=== PATIENT | female | born 1985 | race Hispanic/Latino ===

== ENCOUNTER 2016-10-07 22:13 | Observation (INO) | payer OTHER ==
[~2016-10-07] VITALS: Ht 165.1 cm; Wt 64.9 kg
--- NOTE | 2016-10-07 22:17 | NUR ---
30 YEAR OLD FEMALE C/O CRAMPING PAIN IN ABDOMEN. REPORTS SYMPTOMS STARTED AT 1600 AND PT VOMITED ONCE. REPORTS SHE WAS DIAGNOSED WITH FLU LAST WEEK AND WAS JUST STARTING TO FEEL BETTER WHEN SYMPTOMS STARTED TODAY. DENIES MEDICAL HISTORY OR DAILY MEDICATIONS, NKA.
--- NOTE | 2016-10-07 22:18 | NUR ---
DR. MOSS TO BEDSIDE FOR EVAL.
--- NOTE | 2016-10-07 22:30 | ED GI/GU/ABDOMINAL COMPLAINT ---
History of Present Illness General Chief Complaint: Nausea, Vomiting, Diarrhea Stated Complaint: CRAMPING IN MY STOMACH Source: patient, family Exam Limitations: no limitations Vital Signs & Intake/Output Vital Signs & Intake/Output Vital Signs Date Time Temp Pulse Resp B/P Pulse O2 O2 Flow FiO2 Ox Delivery Rate 10/07 2214 99.0 99 20 118/81 97 Room Air Room Air ED Intake and Output 10/08 0000 10/07 1200 Intake Total 1000 Output Total Balance 1000 Intake, IV 1000 Patient 143 lb Weight Triage Note: 30 YEAR OLD FEMALE C/O CRAMPING PAIN IN ABDOMEN. REPORTS SYMPTOMS STARTED AT 1600 AND PT VOMITED ONCE. REPORTS SHE WAS DIAGNOSED WITH FLU LAST WEEK AND WAS JUST STARTING TO FEEL BETTER WHEN SYMPTOMS STARTED TODAY. DENIES MEDICAL HISTORY OR DAILY MEDICATIONS, NKA. Triage Nurses Notes Reviewed? yes ? N Is pt currently ? No HPI: Patient has been experiencing influenza symptoms for the past 5 days. Subjective fevers chills. Positive myalgias. Nonproductive cough. Patient states that she is beginning to feel better however earlier today she developed diffuse crampy abdominal pain as well as nausea and vomiting. Patient denies any diarrhea. There is no radiation of the crampy pain. There are no aggravating or mitigating factors. She rates the crampy pain is 8 out of 10. She has not noticed any blood in her vomitus. Patient denies dysuria. Past History Travel History Traveled to [place] past 21 day No Medical History Any Pertinent Medical History? none Surgical History Surgical History: non-contributory Psychosocial History What is your primary language Palauan Tobacco Use: Never used ETOH Use: occasional use Illicit Drug Use: denies illicit drug use Family History Hx Contributory? No Review of Systems Review of Systems Constitutional: Reports: no symptoms. EENTM: Reports: no symptoms. Respiratory: Reports: no symptoms. Cardiovascular: Reports: no symptoms. GI: Reports: see HPI, abdominal pain, nausea, vomiting. Genitourinary: Reports: no symptoms. Musculoskeletal: Reports: no symptoms. Skin: Reports: no symptoms. Neurological/Psychological: Reports: no symptoms. Hematologic/Endocrine: Reports: no symptoms. Immunologic/Allergic: Reports: no symptoms. All Other Systems: Reviewed and Negative Physical Exam Physical Exam General Appearance: well developed/nourished, alert, awake, moderate distress Head: atraumatic, normal appearance Eyes: Bilateral: PERRL, EOMI. Ears, Nose, Throat, Mouth: hearing grossly normal, DRY MUCOUS MEMBRANES Neck: normal inspection, supple, full range of motion Respiratory: normal breath sounds, chest non-tender, no respiratory distress, lungs clear Cardiovascular: regular rate/rhythm, normal peripheral pulses Gastrointestinal: normal bowel sounds, DIFFUSELY TENDER WITH VOLUNTARY GUARDING, NO REBOUND, NORMAL BOWEL SOUNDS Back: normal inspection, normal range of motion Extremities: normal range of motion Neurologic/Psych: no motor/sensory deficits, awake, alert, oriented x 3, normal mood/affect Skin: intact, normal color, warm/dry Core Measures ACS in differential dx? No Severe Sepsis Present: No Septic Shock Present: No Progress Differential Diagnosis: appendicitis, bowel obstruction, cholecystitis, diverticulitis, ectopic , gastritis, hepatitis, ischemic bowel, inflamm bowel dis, intrauterine , pancreatitis, SBO, threatened AB, UTI/pyelo Plan of Care: Orders Procedure Date/time Status LIPASE 10/07 2229 Complete HUMAN BETA HCG SCREEN 10/07 2229 Complete COMPREHENSIVE METABOLIC PANEL 10/07 2229 Complete CBC WITHOUT DIFFERENTIAL 10/07 2229 Complete AMYLASE 10/07 2229 Complete Current Medications Sig/[place] Start time Last Medication Dose Stop Time Status Admin Ampicillin Sodium/ 3,000 MG ONCE ONE 10/08 0045 UNVr Sulbactam Sodium 10/08 0114 (Unasyn) Sodium Chloride 100 ML (Normal Saline 0.9%) Laboratory Tests 10/07/16 2301: Anion Gap 13, Estimated GFR > 60, BUN/Creatinine Ratio 13.3, Glucose 108 H, Calcium 9.5, Total Bilirubin 0.5, AST 18, ALT 30, Alkaline Phosphatase 58, Total Protein 7.1, Albumin 4.4, Globulin 2.7, Albumin/Globulin Ratio 1.6, Amylase 40, Lipase 83, Total Beta HCG NEGATIVE, CBC w Diff NO MAN DIFF REQ, RBC 5.01, MCV 86.2, MCH 28.8, RDW 12.6, MPV 8.4, Gran % 85.9 H, Lymphocytes % 8.4 L, Monocytes % 5.2, Eosinophils % 0.5, Basophils % 0 L, Absolute Granulocytes 15.4 H, Absolute Lymphocytes 1.5, Absolute Monocytes 0.9 H, Absolute Eosinophils 0.1, Absolute Basophils 0, PUBS MCHC 33.4 Diagnostic Imaging: Viewed by Me: CT Scan. Discussed w/RAD: CT Scan. Radiology Impression: PATIENT: LAUREEN LUDWIG PRESENT AGE: 30 PATIENT ACCOUNT NO: [id number] : 83 LOCATION: [facility] ORDERING PHYSICIAN: ISADORA MOSS MD SERVICE DATE: 10/07/16 EXAM TYPE: CAT - CT ABD & PELVIS W IV CONTRAST EXAMINATION: CT ABDOMEN AND PELVIS WITH CONTRAST CLINICAL INFORMATION: Right lower quadrant pain. COMPARISON: None. TECHNIQUE: Contiguous axial thin section helical images of the abdomen and pelvis were performed following the administration of 93 mL of intravenous Optiray 320. The data set was reformatted in the coronal and sagittal planes and reviewed on an independent workstation. DLP: 247 mGy-cm. FINDINGS: The visualized lung bases are clear. The visualized portions of the heart are unremarkable. The liver is of normal size and attenuation without concerning focal lesions nor intrahepatic biliary ductal dilation. Within the dome of the right lobe of the liver on image 103/664, there is an approximately 4 mm low-attenuation focus which is too small to fully characterize, but could correspond to a cyst. A normal gallbladder is identified. There is no wall thickening or discernible pericholecystic fluid. The spleen, pancreas, adrenal glands are unremarkable. Both kidneys are of normal size and attenuation without hydronephrosis or nephrolithiasis. Following the administration of IV contrast, prompt symmetric nephrograms are displayed. There is no abdominal free fluid. There is neither mesenteric nor retroperitoneal lymphadenopathy. The appendix is identified in the right lower quadrant with fluid within the distal portion of the lumen. This measures approximately 7 mm. There is equivocal enhancement about the distal wall of the appendix. About the tip of the appendix, there is mild fat stranding. Otherwise, unremarkable unopacified loops of small and large bowel are identified. An IUD is in appropriate position. There is no pelvic free fluid. The urinary bladder is unremarkable. There is neither pelvic nor inguinal lymphadenopathy. Bone windows: Neither sclerotic nor lytic bone lesions are identified. IMPRESSION: Wall thickening and enhancement about the tip of the appendix with trace adjacent mesenteric fat stranding suggestive of early tip appendicitis. DICTATED BY: IVA LIRA MD DATE/TIME DICTATED:10/08/169 VETERINARY NURSE: BAILEY DATE/TIME TRANSCRIBED:10/08/169 CONFIDENTIAL, DO NOT COPY WITHOUT APPROPRIATE AUTHORIZATION. <Electronically signed in Other Vendor System> SIGNED BY: IVA LIRA MD 10/08/16 0022 Initial ED EKG: none Comments: On reexamination the pain localizes to the right lower quadrant. We will obtain a CAT scan. Departure Departure Disposition: STILL A PATIENT Condition: Guarded Clinical Impression Primary Impression: Appendicitis Departure Forms: Customer Survey General Discharge Information Observation Note Spoke With: SHERRIE HARDY,MARIALUISA Ortiz Physician Advisor Notified: ISA HARDY,ISADORA [address] Patient In: Non-ED OBS Care Area Rationale for Observation: My rational for observation is as follows [IV fluids, IV antibiotics, surgical evaluation.].
[2016-10-07 23:10] LABS: ABSOLUTE BASOPHIL COUNT 0 /CUMM (0.0-0.2); ABSOLUTE EOSINOPHIL COUNT 0.1 /CUMM (0.0-0.7); ABSOLUTE GRANULOCYTE CT 15.4 /CUMM (1.4-6.5); ABSOLUTE LYMPH COUNT 1.5 /CUMM (1.2-3.4); ABSOLUTE MONOCYTE COUNT 0.9 /CUMM (0.10-0.60); BASOPHIL % 0 % (0.0-2.0); EOSINOPHIL % 0.5 % (0-5); HEMATOCRIT 43.2 % (37-47); MEAN CORPUSCULAR HGB 28.8 PG (27.0-31.0); MEAN CORPUSCULAR HGB CONC 33.4 G/DL (33.0-37.0); MEAN CORPUSCULAR VOLUME 86.2 FL (81.0-99.0); MEAN PLATELET VOLUME 8.4 FL (7.4-10.4); PLATELET COUNT 221 /CUMM (130-400); RBC DISTRIBUTION WIDTH 12.6 % (11.5-14.5); RED BLOOD CELL CT 5.01 /CUMM (4.20-5.40); WHITE BLOOD CELL COUNT 17.9 /CUMM (4.8-10.8)
[2016-10-07 23:14] LABS: GRANULOCYTE % 85.9 % (42.2-75.2)
--- NOTE | 2016-10-07 23:15 | NUR ---
PATIENT LAYING ON STRETCHER W/ EYES CLOSED AT THIS TIME.
--- NOTE | 2016-10-07 23:55 | NUR ---
PATIENT TO CT BY STRETCHER.
--- NOTE | 2016-10-08 00:07 | NUR ---
PATIENT RETURNED FROM CT SCAN BY STRETCHER. SECOND LITER NS INFUSING AT PRESENT PER EMAR. TOLERATING WELL.
--- NOTE | 2016-10-08 00:11 | NUR ---
PATIENT MEDICATED W/ MORPHINE 2MG PER EMAR. TOLERATED WELL.
--- NOTE | 2016-10-08 00:22 | CT SCAN REPORT ---
EXAMINATION: CT ABDOMEN AND PELVIS WITH CONTRAST CLINICAL INFORMATION: Right lower quadrant pain. COMPARISON: None. TECHNIQUE: Contiguous axial thin section helical images of the abdomen and pelvis were performed following the administration of 93 mL of intravenous Optiray 320. The data set was reformatted in the coronal and sagittal planes and reviewed on an independent workstation. DLP: 247 mGy-cm. FINDINGS: The visualized lung bases are clear. The visualized portions of the heart are unremarkable. The liver is of normal size and attenuation without concerning focal lesions nor intrahepatic biliary ductal dilation. Within the dome of the right lobe of the liver on image 103/664, there is an approximately 4 mm low-attenuation focus which is too small to fully characterize, but could correspond to a cyst. A normal gallbladder is identified. There is no wall thickening or discernible pericholecystic fluid. The spleen, pancreas, adrenal glands are unremarkable. Both kidneys are of normal size and attenuation without hydronephrosis or nephrolithiasis. Following the administration of IV contrast, prompt symmetric nephrograms are displayed. There is no abdominal free fluid. There is neither mesenteric nor retroperitoneal lymphadenopathy. The appendix is identified in the right lower quadrant with fluid within the distal portion of the lumen. This measures approximately 7 mm. There is equivocal enhancement about the distal wall of the appendix. About the tip of the appendix, there is mild fat stranding. Otherwise, unremarkable unopacified loops of small and large bowel are identified. An IUD is in appropriate position. There is no pelvic free fluid. The urinary bladder is unremarkable. There is neither pelvic nor inguinal lymphadenopathy. Bone windows: Neither sclerotic nor lytic bone lesions are identified. IMPRESSION: Wall thickening and enhancement about the tip of the appendix with trace adjacent mesenteric fat stranding suggestive of early tip appendicitis.
--- NOTE | 2016-10-08 00:58 | NUR ---
SURGICAL PA PITER AT BEDSIDE FOR EVAL. UNASYN 3G INFUSING AT 200ML/HR PER EMAR. TOLERATING WELL.
--- NOTE | 2016-10-08 01:21 | History & Physical ---
General Information and HPI Source of Information: patient Exam Limitations: no limitations History of Present Illness: Patient is a 30yo F that presented to [place] with 1 day history of abdominal discomfort and right lower quadrant abdominal pain. Patient states that she recently had flu last week but those symptoms resolved over the past weekend. She had started to increase her by mouth intake then started developing increased abdominal discomfort Thursday which then progressed to abdominal pain the following day. At this time pain is located in RLQ. She continues to have n/v with PO intake. Passing flatus. No further complaints of. No chest pain or shortness of breath. Past History Travel History Traveled to [place] past 21 day No Surgical History Surgical History: non-contributory Past Family/Social History Psychosocial History ETOH Use: occasional use Illicit Drug Use: denies illicit drug use Review of Systems Review of Systems Constitutional: Reports: chills, fever. EENTM: Reports: no symptoms. Cardiovascular: Denies: chest pain, palpitations. Respiratory: Denies: short of breath. GI: Reports: see HPI. Genitourinary: Denies: dysuria. Musculoskeletal: Reports: no symptoms. Skin: Denies: change in skin color, jaundice, lesions. Exam & Diagnostic Data Last 24 Hrs of Vital Signs/I&O Vital Signs Date Time Temp Pulse Resp B/P Pulse O2 O2 Flow FiO2 Ox Delivery Rate 10/07 2214 99.0 99 20 118/81 97 Room Air Room Air Intake & Output 10/08 0800 10/08 0000 10/07 1600 Intake Total 2000 1000 Output Total Balance 2000 1000 Intake, IV 2000 1000 Patient 143 lb Weight Physical Exam General Appearance Alert, Oriented X3, Cooperative, No Acute Distress Skin No Rashes, No Breakdown, No Significant Lesion HEENT Atraumatic, EOMI, Mucous Membr. moist/pink Neck Supple Cardiovascular Regular Rate Lungs Normal Air Movement Abdomen Soft, Non distended. +McBurney point tenderness. No guarding. No rebound tenderness or Rosving's sign. Neurological Strength at 5/5 X4 Ext, Cranial Nerves 3-12 NL Extremities Normal Pulses Last 24 Hrs of Labs/Georges: Laboratory Tests 10/07/16 2301: Anion Gap 13, Estimated GFR > 60, BUN/Creatinine Ratio 13.3, Glucose 108 H, Calcium 9.5, Total Bilirubin 0.5, AST 18, ALT 30, Alkaline Phosphatase 58, Total Protein 7.1, Albumin 4.4, Globulin 2.7, Albumin/Globulin Ratio 1.6, Amylase 40, Lipase 83, Total Beta HCG NEGATIVE, CBC w Diff NO MAN DIFF REQ, RBC 5.01, MCV 86.2, MCH 28.8, RDW 12.6, MPV 8.4, Gran % 85.9 H, Lymphocytes % 8.4 L, Monocytes % 5.2, Eosinophils % 0.5, Basophils % 0 L, Absolute Granulocytes 15.4 H, Absolute Lymphocytes 1.5, Absolute Monocytes 0.9 H, Absolute Eosinophils 0.1, Absolute Basophils 0, PUBS MCHC 33.4 Diagnostic Data Other Results EXAM TYPE: CAT - CT ABD & PELVIS W IV CONTRAST EXAMINATION: CT ABDOMEN AND PELVIS WITH CONTRAST CLINICAL INFORMATION: Right lower quadrant pain. COMPARISON: None. TECHNIQUE: Contiguous axial thin section helical images of the abdomen and pelvis were performed following the administration of 93 mL of intravenous Optiray 320. The data set was reformatted in the coronal and sagittal planes and reviewed on an independent workstation. DLP: 247 mGy-cm. FINDINGS: The visualized lung bases are clear. The visualized portions of the heart are unremarkable. The liver is of normal size and attenuation without concerning focal lesions nor intrahepatic biliary ductal dilation. Within the dome of the right lobe of the liver on image 103/664, there is an approximately 4 mm low-attenuation focus which is too small to fully characterize, but could correspond to a cyst. A normal gallbladder is identified. There is no wall thickening or discernible pericholecystic fluid. The spleen, pancreas, adrenal glands are unremarkable. Both kidneys are of normal size and attenuation without hydronephrosis or nephrolithiasis. Following the administration of IV contrast, prompt symmetric nephrograms are displayed. There is no abdominal free fluid. There is neither mesenteric nor retroperitoneal lymphadenopathy. The appendix is identified in the right lower quadrant with fluid within the distal portion of the lumen. This measures approximately 7 mm. There is equivocal enhancement about the distal wall of the appendix. About the tip of the appendix, there is mild fat stranding. Otherwise, unremarkable unopacified loops of small and large bowel are identified. An IUD is in appropriate position. There is no pelvic free fluid. The urinary bladder is unremarkable. There is neither pelvic nor inguinal lymphadenopathy. Bone windows: Neither sclerotic nor lytic bone lesions are identified. IMPRESSION: Wall thickening and enhancement about the tip of the appendix with trace adjacent mesenteric fat stranding suggestive of early tip appendicitis. Assessment/Plan Assessment: 30yo F with acute appendicitis - Admit to observation under Dr. Gutierrez - NPO - IVF with K+ - IV unasyn - Pain control - SC heparin and ALPS for DVT PPx - I/O's - OR with Dr. Gutierrez for laparoscopic vs open cholecystectomy - Will d/w Dr. Gutierrez As Ranked By This Provider Problem List: 1. Appendicitis Core Measures/Miscellaneous Acute Coronary Syndrome ACS Diagnosis: No Cerebrovascular Accident CVA/TIA Diagnosis: No Congestive Heart Failure CHF Diagnosis: No Venous Thromboembolism VTE Risk Factors: Acute medical illness VTE Prophylaxis Ordered Inpt: Mech & Pharm No Mech VTE prophylaxis d/t: No contraindications No VTE Pharm Prophylaxis d/t: No contraindications VTE Diagnosis: No VTE Type: NONE VTE Confirmed by (Test): NONE Severe Sepsis Severe Sepsis Present: No Septic Shock Septic Shock Present: No Miscellaneous Documentation Attending Case Discussed With: Dr. Gutierrez Primary Care Physician: PATIENT HAS NO PRIMARY CARE Patient sees these Specialists Unknown Level of Patient Care: General Medicine
--- NOTE | 2016-10-08 02:23 | NUR ---
REPORT CALLED TO MARK SHELTON ON GM.
--- NOTE | 2016-10-08 02:32 | NUR ---
KCL 20MEQ IN D5-1/2NS INFUSING AT 100ML/HR PER EMAR. TOLERATING WELL. PATIENT REPORTS INCREASING PAIN, MORPHINE ORDER Q3H, CAN BE GIVEN AGAIN AT 0311. ZOFRAN PRN ORDER PLACED FOR Q8H.
[2016-10-08] MEDS ORDERED: ZOFRAN ODT4 M1 SL (02:36)
--- NOTE | 2016-10-08 02:38 | NUR ---
PATIENT REPORTS HAD +FLU SWAB LAST THURSDAY AND TOOK TAMIFLU. MARK SHELTON ON FLOOR AWARE.
--- NOTE | 2016-10-08 02:46 | NUR ---
ROOM CHANGED TO 222 (PRIVATE ROOM) D/T CONCERN OF PATIEN T HAVING DX FLU LAST THURSDAY DESPITE TAMIFLU.
[2016-10-08 03:01] VITALS: BP 108/62
--- NOTE | 2016-10-08 04:36 | NUR ---
REPORT RECEIVED FROM ANGELICA RN, PT ARRIVED TO FLOOR AT 0258 VIA STRETCHER. A&OX3, ON RA, LUNGS CLEAR, VITALS STABLE. PT C/O NAUSEA DENIES VOMITTING, PAIN 5/10, PT STATES SHE HAD THE FLU LAST WEEK, TOOK TAMIFLU BUT COULD NOT KEEP IT DOWN DUE TO VOMITTING. PT + COUGH, DENIES SORE THROAT. FLU SWAB ORDERED. PT REMAINS NPO FOR OR TOMORROW. IV FLUIDS RUNNING, ORIENTED TO ROOM, STAFF, CALL MARQUEZ WITHIN REACH. WILL CONTINUE TO MONIOR.
[2016-10-08 06:23] VITALS: BP 122/66
--- NOTE | 2016-10-08 08:55 | History & Physical Pre-Op ---
General Information and HPI Source of Information: patient Exam Limitations: no limitations History of Present Illness: CC: abdominal pain HPI: 30-year-old nondiabetic nonsmoker otherwise healthy no medications no prior surgeries female who had the flu last week associated with vomiting back up better over the weekend and then Thursday she started having abdominal cramps all day generalized the continued into earlier yesterday but then started having persistent pain in the right lower quadrant she came to the ER the vomiting stopped no fevers no sweats pain not worse on movement no dysuria no bleeding per rectum no back pain, pain does not seem to be related to food her brother had appendicitis when he was 3 years old, otherwise no changes bowel habits, weight or appetite. I've reviewed the [facility]. No history of GERD, PUD, bleeding problems, heart disease or issues with anesthesia. 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 History of MRSA: No History of VRE: No History of CDIFF: No Isolation History: Standard Surgical History Pertinent Surgical History: non-contributory Past Family/Social History Psychosocial History Smoking Status: Never Smoked ETOH Use: occasional use Illicit Drug Use: denies illicit drug use Review of Systems Review of Systems: Constitutional: No fever, sweats or weight loss ENMT: No sore throat Cardiovascular: No chest pain, palpitations or leg swelling Respiratory: No shortness of breath, cough, or sputum or dyspnea on exertion GI: No GERD or bleeding per rectum : No dysuria or hematuria Musculoskeletal: No new muscle weakness, bone or joint pain Skin / Breast: No jaundice, rashes or itching Psychiatric: No history of drug or alcohol abuse no depression or anxiety Hematologic / lymphatic system: No problems with excessive bleeding, bruising, or blood clots Exam & Diagnostic Data Last 24 Hrs of Vital Signs/I&O I reviewed Vital Signs Date Time Temp Pulse Resp B/P Pulse O2 O2 Flow FiO2 Ox Delivery Rate 10/08 0623 97.9 84 18 122/66 98 Room Air 10/08 0301 98.2 80 18 108/62 98 Room Air 10/08 0222 97.4 72 18 104/64 96 Room Air 10/07 2214 99.0 99 20 118/81 97 Room Air Room Air I reviewed Intake & Output 10/08 1600 10/08 0800 10/08 0000 Intake Total 2400 1000 Output Total 350 Balance 2050 1000 Intake, IV 2400 1000 Intake, Oral 0 Number 0 Bowel Movements Output, Urine 350 Patient 143 lb 143 lb Weight Physical Exam: Constitutional: pleasant, no acute distress, conversant Eyes: sclera anicteric ENMT: ears and nose atraumatic, moist mucous membranes, good dentition, no lip lesions Neck: Supple, trachea is midline, no cervical or supraclavicular adenopathy and no palpable thyromegaly Cardiovascular: S1, S2, no murmurs, no peripheral edema Respiratory: clear to auscultation with normal respiratory effort and no intercostal retractions GI: abdomen soft, right lower quadrant abdominal tenderness but lower than McBurney's point, very focal, nondistended, no palpable hepatosplenomegaly Extremities / lymphatics: symmetrically warm, free range of motion no peripheral edema, no cervical, supraclavicular, axillary, or inguinal adenopathy Musculoskeletal: He did not evaluate gait and station, no digital cyanosis, good muscle strength and tone no atrophy, motor grossly 5 out of 5 throughout Skin: no jaundice, no rashes warm, nondiaphoretic, no areas of erythema or induration Psychiatric: mood and affect are appropriate and alert and oriented to person place and time Last 24 Hrs of Labs/Georges: I reviewed Laboratory Tests 10/07/16 2301: Anion Gap 13, Estimated GFR > 60, BUN/Creatinine Ratio 13.3, Glucose 108 H, Calcium 9.5, Total Bilirubin 0.5, AST 18, ALT 30, Alkaline Phosphatase 58, Total Protein 7.1, Albumin 4.4, Globulin 2.7, Albumin/Globulin Ratio 1.6, Amylase 40, Lipase 83, Total Beta HCG NEGATIVE, CBC w Diff NO MAN DIFF REQ, RBC 5.01, MCV 86.2, MCH 28.8, RDW 12.6, MPV 8.4, Gran % 85.9 H, Lymphocytes % 8.4 L, Monocytes % 5.2, Eosinophils % 0.5, Basophils % 0 L, Absolute Granulocytes 15.4 H, Absolute Lymphocytes 1.5, Absolute Monocytes 0.9 H, Absolute Eosinophils 0.1, Absolute Basophils 0, PUBS MCHC 33.[address] scan on PACS myself from last night shows a prominent appendix without surrounding inflammatory changes it's a little lower than McBurney's point Diagnostic Data Other Results EXAM TYPE: CAT - CT ABD & PELVIS W IV CONTRAST EXAMINATION: CT ABDOMEN AND PELVIS WITH CONTRAST CLINICAL INFORMATION: Right lower quadrant pain. COMPARISON: None. TECHNIQUE: Contiguous axial thin section helical images of the abdomen and pelvis were performed following the administration of 93 mL of intravenous Optiray 320. The data set was reformatted in the coronal and sagittal planes and reviewed on an independent workstation. DLP: 247 mGy-cm. FINDINGS: The visualized lung bases are clear. The visualized portions of the heart are unremarkable. The liver is of normal size and attenuation without concerning focal lesions nor intrahepatic biliary ductal dilation. Within the dome of the right lobe of the liver on image 103/664, there is an approximately 4 mm low-attenuation focus which is too small to fully characterize, but could correspond to a cyst. A normal gallbladder is identified. There is no wall thickening or discernible pericholecystic fluid. The spleen, pancreas, adrenal glands are unremarkable. Both kidneys are of normal size and attenuation without hydronephrosis or nephrolithiasis. Following the administration of IV contrast, prompt symmetric nephrograms are displayed. There is no abdominal free fluid. There is neither mesenteric nor retroperitoneal lymphadenopathy. The appendix is identified in the right lower quadrant with fluid within the distal portion of the lumen. This measures approximately 7 mm. There is equivocal enhancement about the distal wall of the appendix. About the tip of the appendix, there is mild fat stranding. Otherwise, unremarkable unopacified loops of small and large bowel are identified. An IUD is in appropriate position. There is no pelvic free fluid. The urinary bladder is unremarkable. There is neither pelvic nor inguinal lymphadenopathy. Bone windows: Neither sclerotic nor lytic bone lesions are identified. IMPRESSION: Wall thickening and enhancement about the tip of the appendix with trace adjacent mesenteric fat stranding suggestive of early tip appendicitis. Assessment/Plan Assessment/Plan: Impression is acute appendicitis. I explained to the patient that this is a potentially life-threatening infection for which I recommend an appendectomy. I feel antibiotics often alone are not enough and sometimes there is an occult malignancy. The severity of infection is related to the chance of perforation which usually increases after about 24 hours fortunately the patient is presenting earlier. Depending on what we find intraoperatively they may be discharged the same day or may need to stay for more IV antibiotics, at depends. I also discussed the possibility of a postoperative infection whether superficial or deep, this is also related to the initial severity and may also appear even a week later after an initial interval of well-being during the recovery. I explained the operation we usually do it laparoscopically rarely converting to open, depending on the amount of inflammation and whether the anatomy is very unusual all to avoid inadvertent injury to surrounding surrounding structures such as bowel and blood vessels and ureter. We also discussed the potential risks, benefits and alternatives to the procedure and surgery in general, issues that included but were not limited to, anesthetic risks hemorrhage requiring transfusion, the risk of transfusion itself, infection, heart attack, stroke, . As Ranked By This Provider Problem List: 1. Appendicitis Attending MD Review Statement Attending Statement Attending MD Statement: examined this patient
--- NOTE | 2016-10-08 10:29 | Patient Discharge Instructions ---
Discharge Instructions General Discharge Information You were seen/treated for: acute appendicitis You had these procedures: laparoscopic appendectomy (10/08/16) Watch for these problems: fever>101.3, increased pain, redness/swelling/drainage No bath, but you may shower: Yes Other wound care: ok to remove outer dressings. leave white steri strips in place. ok to shower. keep incisions clean & dry. Diet Continue normal diet: Yes Recommended Diet: Regular Activity Full Activity/No Limits: No Activity Self Limited: Yes Pounds, do NOT lift more than: 10 Acute Coronary Syndrome Inclusion Criteria At DC or during hospital stay patient has or had the following: ACS DIAGNOSIS No Discharge Core Measures Meds if any: Prescribed or Continued at Discharge Meds if any: NOT Prescribed or Continued at Discharge Congestive Heart Failure Inclusion Criteria At DC or during hospital stay patient has or had the following: CHF DIAGNOSIS No Discharge Core Measures Meds if any: Prescribed or Continued at Discharge Meds if any: NOT Prescribed or Continued at Discharge Cerebrovascular accident Inclusion Criteria At DC or during hospital stay patient has or had the following: CVA/TIA Diagnosis No Discharge Core Measures Meds if any: Prescribed or Continued at Discharge Meds if any: NOT Prescribed or Continued at Discharge Venous thromboembolism Inclusion Criteria VTE Diagnosis No VTE Type NONE VTE Confirmed by (Test) NONE Discharge Core Measures - Per Current guidelines, there needs to be overlap - treatment for the first 5 days of Warfarin therapy. - If discharged on Warfarin prior to 5 days of - overlap therapy, the patient will need to be - assessed for post discharge needs including - *Post discharge parental anticoagulation - *Warfarin and/or parental anticoagulation education - *Follow up date to check INR post discharge At least 5 days overlap therapy as Inpatient No Meds if any: Prescribed or Continued at Discharge Note: Overlap Therapy is Warfarin and Anticoagulant Meds if any: NOT Prescribed or Continued at Discharge
[2016-10-08] MEDS ORDERED: PERCOCET 5-3251 EACH PO (10:31)
--- NOTE | 2016-10-08 14:37 | Operative Report ---
Operative/Inv Procedure Report Surgery Date: 10/08/16 Name of Procedure: Laparoscopic appendectomy Pre-Operative Diagnosis: Acute appendicitis Post-Operative Diagnosis: Same Estimated Blood Loss: scant Surgeon/Accounts Payable Manager: SHERRIE HARDY,MARIALUISA VELAZQUEZ Anesthesia: general endotracheal tube Operative/Procedure Note Note: Patient was placed on the OR table in the supine position. After successful induction of general anesthesia the patient's abdomen was prepped clipped and draped in the usual sterile fashion The left arm was tucked. Local anesthetic was injected at the top of the umbilicus and entry into the peritoneum was established via the open Roa technique: a one cm curved incision was made at the top of the umbilicus, the linea alba was secured between 2 pediatric Apple clamps and incised vertically, 0-Vicryl stay sutures were placed on each side and then while retracting upwards, the peritoneal layer was entered sharply, then through that small opening, using an S retractor acting like a shoehorn, a 10 mm blunt trocar was inserted obliquely to the right and secured with the stay sutures. The gas was turned on to maximum of 15 mm, two 5 mm dissecting ports were then inserted, one suprapubic and one left lower quadrant, laterally. We used a local anesthetic needle to guide their trajectories, particular attention was given to avoid injury to the bowel, the bladder and the epigastric vessels. Then our attention was directed to the right lower quadrant, the small bowel was swept superiorly and medially, revealing the base of the cecum. An inflamed appendix was then mobilized by it from the lateral and inferior peritoneal attachments using cautery. Using a combination of a [place] dissector, peanut dissector and a [place] clamp, a window was developed between the mesoappendix and the base of the appendix. This window is then used to divide the appendix at the base and the mesoappendix with a linear stapling device, separately, using an intestinal cartridge for the appendix and a vascular cartridge for the mesoappendix; the division of the appendix includes a small flange of cecal base. The appendix is lowered into an Endobag and set aside. The staple lines were checked for bleeding and small oozing was controlled with light zaps of the cautery. We deliberately irrigate the area including up by the liver and down in the pelvis, several rounds, checking the staple lines and each time to make sure that there is no ongoing bleeding. Next the instruments and the trochars and Endobag are removed, letting the gas out. We closed the umbilical fascial incision with a [id number] 0 vicryl suture, then the 3 skin incisions are closed with multiple interrupted subcuticular 4-0 Biosyn sutures, 3 for the umbilical, 1 each for the smaller ones, then covered with Mastisol, Steri-Strips and Band-Aids. Lap and sponge and sponge counts: correct Wound expectancy: infected IV fluids: crystalloid Complications: none Patient tolerated the procedure well was awakened and extubated and returned to the recovery room in satisfactory condition.
[2016-10-08 15:30] VITALS: BP 110/64
--- NOTE | 2016-10-08 17:13 | PN- General Surgery ---
Subjective Subjective: Reports some incisional pain, as expected. She is asking for clears. Denies nausea. Out of bed to bathroom. No dizziness. No shortness of breath. No chest pains. Voiding without difficulty. Objective Vital Signs and I&Os Vital Signs Date Time Temp Pulse Resp B/P Pulse O2 O2 Flow FiO2 Ox Delivery Rate 10/08 622 97.9 84 18 122/66 98 Room Air 10/08 0301 98.2 80 18 108/62 98 Room Air 10/08 0222 97.4 72 18 104/64 96 Room Air 10/07 2214 99.0 99 20 118/81 97 Room Air Room Air Intake & Output 10/08 1600 10/08 0800 10/08 0000 10/07 1600 10/07 0800 10/07 0000 Intake Total 2400 1000 Output Total 350 Balance 2050 1000 Intake, IV 2400 1000 Intake, Oral 0 Number 0 Bowel Movements Output, Urine 350 Patient 143 lb 143 lb Weight Physical Exam: General - alert & oriented x 3. comfortable. no acute distress. Lungs - clear bilaterally. no w/r/r. Cardiac - s1s2. reg. Abdomen - soft. dressings c/d/i. chuy-incisional discomfort, as expected. Extremities - warm bilaterally. no c/c/e. calves soft and nontender b/l. Assessment/Plan Assessment/Plan This 30 year old white female is POD#0 s/p lap appendectomy advance diet as tolerated pain medication as ordered unasyn x 1 dose post-op per hep sc - dvt ppx oob/ambulation add toradol for non-narcotic pain control d/c planning once tolerating diet likely to go home in the morning d/w Core Measures/Miscellaneous Venous Thromboembolism VTE Risk Factors: Surgery VTE Contraindications: No Contraindications VTE Prophylaxis Ordered Inpt Mech & Pharm VTE Diagnosis: No VTE Type: NONE VTE Confirmed by (Test): NONE Beta Tim Is Beta Tim a Home Med? No Antibiotics Is Patient on Antibiotics? Yes If Yes: prophylaxis
[2016-10-08 19:14] VITALS: BP 104/60
[2016-10-08 22:52] VITALS: BP 98/60
[2016-10-09 03:00] VITALS: BP 118/78
--- NOTE | 2016-10-09 07:37 | PN- General Surgery ---
Subjective Subjective: NAEO. Patient without new c/o. Pain controlled. RLQ pain resolved, c/o incisional pain. Patient had mild nausea last night which is resolved this morning. Tolerating clears. No emesis. OOB and ambulating. Voiding spontaneously. Denies CP/SOB. Objective Vital Signs and I&Os Vital Signs Date Time Temp Pulse Resp B/P Pulse O2 O2 Flow FiO2 Ox Delivery Rate 10/09 0300 98.4 70 18 118/78 100 Room Air 10/08 2252 97.9 76 20 98/60 98 Room Air 10/08 1914 98.3 60 20 104/60 98 Room Air 10/08 1530 98.5 70 18 110/64 98 Room Air Intake & Output 10/09 1600 10/09 0810/09 0000 10/08 1600 10/08 0800 10/08 0000 Intake Total 200 2677 173 1399 1000 Output Total 350 400 450 350 Balance -150 377 33 8340 1000 Intake, IV 444 847 2211 1000 Intake, Oral 200 580 0 Number 0 Bowel Movements Output, Urine 350 400 450 350 Patient 143 lb 143 lb Weight Physical Exam: General: NAD, comfortable, A&Ox3 Chest: CTAB, no wheezes, no rales. Heart S1S2 normal. Abdomen: soft, nondistended. Appropriately tender to palpation. Incisions clean dry and intact. +Bowel sounds x4 quadrants Ext: No calve swelling/TTP, neurovascularly intact bilateral lower extremities Current Medications: Current Medications Sig/[place] Start time Last Medication Dose Route Stop Time Status Admin Acetaminophen 1,000 MG .STK-MED ONE 10/08 112 DC IV 10/08 112 Acetaminophen 650 MG Q4P PRN 10/08 0130 AC PO Ampicillin Sodium/ 3,000 MG ONE TIME ONE 10/08 1900 DC 10/08 Sulbactam Sodium IV 10/08 Sodium Chloride 100 ML Ampicillin Sodium/ 3,000 MG Q6H 10/08 07 DC 10/08 Sulbactam Sodium IV 1542 Sodium Chloride 100 ML Fentanyl Citrate 250 MCG .STK-MED ONE 10/08 112 DC IM 10/08 1123 Heparin Sodium 5,000 UNIT Q8 10/08 0600 AC 10/09 (Porcine) SC 0620 Hydromorphone HCl 2 MG .STK-MED ONE 10/08 112 DC IM 10/08 1123 Ketorolac 30 MG Q6-PRN PRN 10/08 1715 AC 10/09 Tromethamine IV 0620 Midazolam HCl 2 MG .STK-MED ONE 10/08 1122 DC IM 10/08 1123 Morphine Sulfate 2 MG Q3P PRN 10/08 0130 AC 10/09 IV 0257 Morphine Sulfate 4 MG Q3P PRN 10/08 0130 AC 10/08 IV 1826 Ondansetron HCl 4 MG Q8P PRN 10/08 0130 AC 10/08 IV 1532 Pantoprazole Sodium 40 MG DAILY 10/08 1000 AC 10/08 IV 0926 Patient Medication 1 ED ONE ONE 10/08 1415 DC Teaching ED 10/08 1416 Potassium Chloride 20 MEQ .Q10H 10/08 0130 DC 10/08 Dextrose/Sodium 1,000 ML IV 0232 Chloride Scopolamine HBr 1 PAT .STK-MED ONE 10/08 1123 DC TOP 10/08 1124 Results Last 48 Hours of Labs: Laboratory Tests 10/09 10/08 0720 1040 Hematology CBC w Diff Pending WBC Pending RBC Pending Hgb Pending Hct Pending MCV Pending MCH Pending RDW Pending Plt Count Pending MPV Pending PUBS MCHC Pending Urines Urine Color (YEL,AMB,STR) YEL Urine Clarity (CLEAR) CLEAR Urine pH (5.0 - 8.0) 6.5 Ur Specific [place] (1.001 - 1.035) 1.020 Urine Protein (NEG,<30 MG/DL) NEG Urine Ketones (NEG) NEG Urine Nitrite (NEG) NEG Urine Bilirubin (NEG) NEG Urine Urobilinogen (0.1 - 1.0 EU/dl) 0.2 Ur Leukocyte Esterase (NEG) NEG Ur Microscopic EXAM NOT REQUIRED Urine Hemoglobin (NEG) NEG Urine Glucose (N MG/DL) NEG 10/07 2301 Chemistry Sodium (137 - 145 mmol/L) 140 Potassium (3.5 - 5.1 mmol/L) 3.3 L Chloride (98 - 107 mmol/L) 102 Carbon Dioxide (22 - 30 mmol/L) 25 Anion Gap (5 - 16) 13 BUN (7 - 17 mg/dL) 8 Creatinine (0.5 - 1.0 mg/dL) 0.6 Estimated GFR (>60 ml/min) > 60 BUN/Creatinine Ratio (7 - 25 %) 13.3 Glucose (65 - 99 mg/dL) 108 H Calcium (8.4 - 10.2 mg/dL) 9.5 Total Bilirubin (0.2 - 1.3 mg/dL) 0.5 AST (14 - 36 U/L) 18 ALT (9 - 52 U/L) 30 Alkaline Phosphatase (<127 U/L) 58 Total Protein (6.3 - 8.2 g/dL) 7.1 Albumin (3.5 - 5.0 g/dL) 4.4 Globulin (1.9 - 4.2 gm/dL) 2.7 Albumin/Globulin Ratio (1.1 - 2.2 %) 1.6 Amylase (30 - 110 U/L) 40 Lipase (23 - 300 U/L) 83 Total Beta HCG (NEGATIVE) NEGATIVE Hematology CBC w Diff NO MAN DIFF REQ WBC (4.8 - 10.8 /CUMM) 17.9 H RBC (4.20 - 5.40 /CUMM) 5.01 Hgb (12.0 - 16.0 G/DL) 14.4 Hct (37 - 47 %) 43.2 MCV (81.0 - 99.0 FL) 86.2 MCH (27.0 - 31.0 PG) 28.8 RDW (11.5 - 14.5 %) 12.6 Plt Count (130 - 400 /CUMM) 221 MPV (7.4 - 10.4 FL) 8.4 Gran % (42.2 - 75.2 %) 85.9 H Lymphocytes % (20.5 - 51.1 %) 8.4 L Monocytes % (1.7 - 9.3 %) 5.2 Eosinophils % (0 - 5 %) 0.5 Basophils % (0.0 - 2.0 %) 0 L Absolute Granulocytes (1.4 - 6.5 /CUMM) 15.4 H Absolute Lymphocytes (1.2 - 3.4 /CUMM) 1.5 Absolute Monocytes (0.10 - 0.60 /CUMM) 0.9 H Absolute Eosinophils (0.0 - 0.7 /CUMM) 0.1 Absolute Basophils (0.0 - 0.2 /CUMM) 0 PUBS MCHC (33.0 - 37.0 G/DL) 33.4 Assessment/Plan Assessment/Plan 30yo F POD#1 s/p laparoscopic appendectomy. AVSS, patient progressing well. - Pain control - PRN zofran - Diet as tolerated - no more abx - I/O's - sc heparin and ALPS for DVT PPX - OOB and ambulate - DC home today - will d/w attending Core Measures/Miscellaneous Venous Thromboembolism VTE Risk Factors: Surgery VTE Contraindications: No Contraindications VTE Prophylaxis Ordered Inpt Mech & Pharm VTE Diagnosis: No VTE Type: NONE VTE Confirmed by (Test): NONE Beta Tim Is Beta Tim a Home Med? No Antibiotics Is Patient on Antibiotics? No If Yes: prophylaxis
[2016-10-09 08:53] LABS: ABSOLUTE BASOPHIL COUNT 0 /CUMM (0.0-0.2); ABSOLUTE EOSINOPHIL COUNT 0 /CUMM (0.0-0.7); ABSOLUTE GRANULOCYTE CT 6.3 /CUMM (1.4-6.5); ABSOLUTE LYMPH COUNT 1.5 /CUMM (1.2-3.4); ABSOLUTE MONOCYTE COUNT 0.6 /CUMM (0.10-0.60); BASOPHIL % 0.1 % (0.0-2.0); EOSINOPHIL % 0 % (0-5); GRANULOCYTE % 75.1 % (42.2-75.2); MEAN CORPUSCULAR HGB 29.6 PG (27.0-31.0); MEAN CORPUSCULAR HGB CONC 34.2 G/DL (33.0-37.0); MEAN CORPUSCULAR VOLUME 86.7 FL (81.0-99.0); MEAN PLATELET VOLUME 9.5 FL (7.4-10.4); PLATELET COUNT 167 /CUMM (130-400); RBC DISTRIBUTION WIDTH 13.2 % (11.5-14.5); RED BLOOD CELL CT 3.81 /CUMM (4.20-5.40)
[2016-10-09 09:10] LABS: WHITE BLOOD CELL COUNT 8.4 /CUMM (4.8-10.8)
== END 2016-10-09 11:20 ==
LOC: ENRESERVDT → ENRESERVTM → ERH 22:13 → ENPENDDIS 10-08 01:25 → 2NA 10-08 01:25 → ERHI 10-08 01:25 → 2NA 10-08 02:55
PROVIDERS: Emergency Medicine; Physician Assistant; ADMIT Surgery
DX: K35.89 Other acute appendicitis (principal)
CPT/HCPCS: 74177; 81003; 87804; 87804-59; 88304; 96361; 96372; 96374; 96375; G0378; J0131; J1644; J1885; J2405; J7042